=== PATIENT | female | born 1960 | race Caucasian/White ===

== ENCOUNTER 2018-12-22 11:03 | Emergency (ER) | payer MEDICARE, MEDICAID ==
[~2018-12-22] VITALS: Ht 165.1 cm; Wt 90.9 kg
[2018-12-22 11:20] VITALS: BP 143/76
[2018-12-22] MEDS ORDERED: ERYT1OIN6 EACHEYE (11:50)
[2018-12-22] MEDS ORDERED: CIPR2.5D18 EACHEYE (12:07)
== END 2018-12-22 12:21 | disposition home or self-care (01) ==
LOC: ER 11:04
DX: H10.9 Unspecified conjunctivitis (principal); Z88.0 Allergy status to penicillin; Z88.2 Allergy status to sulfonamides; Z88.1 Allergy status to other antibiotic agents; Z79.2 Long term (current) use of antibiotics
CPT/HCPCS: 99283